=== PATIENT | male | born 1975 | race Caucasian/White ===

== ENCOUNTER 2017-08-01 02:18 | Emergency (ER) | payer MEDICAID, OTHER ==
[~2017-08-01] VITALS: Ht 182.9 cm; Wt 77.9 kg
[~2017-08-01 02:18] MED LIST: OLAN2.5T PO
[2017-08-01 02:32] VITALS: BP 117/76; PULSE 97; RESP 18; TEMP 98.7; O2SAT 97
[2017-08-01] MEDS ORDERED: ADDE30TA PO (02:46)
[2017-08-01] MEDS ORDERED: XANA2TAB PO (02:46)
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
[2017-08-01] MEDS ORDERED: HYDR-3533 PO (03:29)
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
[2017-08-01 03:43] VITALS: BP 119/71; PULSE 89; RESP 18; O2SAT 97
== END 2017-08-01 03:53 | disposition home or self-care (01) ==
LOC: PHED 02:18
DX: S62.316A Displaced fracture of base of fifth metacarpal bone, right hand, initial encounter for closed fracture (principal); S62.314A Displaced fracture of base of fourth metacarpal bone, right hand, initial encounter for closed fracture; V89.2XXA Person injured in unspecified motor-vehicle accident, traffic, initial encounter
CPT/HCPCS: 73130; 99283